=== PATIENT | male | born 1945 | race Caucasian/White ===

== ENCOUNTER 2017-02-28 07:17 | Day surgery (SDC) | payer OTHER, MEDICARE ==
--- NOTE | 2017-02-18 17:01 | PREOP HISTORY & PHYSICAL ---
HISTORY: 71 year old male here for evaluation of declining vision in both eyes for the past 1-2 years. He is having more trouble seeing the ball when playing softball (seeing the scoreboard) and seeing the golf ball. He is having to get closer to road signs in order to read them. He notes more trouble seeing the sports scores and scrolling tonya on the television (as well as the television guide). He is also having some difficulty seeing smaller print - even when wearing reading glasses (needing more light in order to read). He denies significant glare symptoms or seeing "starbursts or haloes " around lights at night. PAST OCULAR HISTORY: "Cataracts", Reading glasses OCULAR MEDICATIONS: None PAST MEDICAL HISTORY: Problem List/Past Medical (Dom Kim M.D.; 01/22/2017 9:25 AM) Aortic aneurysm (I71.9)04/2013 Ascending Aortic Aneurysm 3.5cm, Aortic Arch Aneurysm 4cm, Dr. Garcia History of kidney stones (Z87.442) ALLERGIES: No Known Drug Allergies FAMILY HISTORY: No Significant Family Ocular History SOCIAL HISTORY: Alcohol Use Drinks Socially. Tobacco Use Former smoker. Quit in 1974. 10 Pack-Years. Vehicle Driving Yes. CURRENT MEDICATIONS: Aspirin (81MG Tablet, 1 Oral daily) Active. Cialis (20MG Tablet, 1 (one) Tablet Oral daily prn prior to intercourse, Taken starting 02/15/2016) Active. Medications Reconciled PAST SURGICAL HISTORY: [employer] REVIEW OF SYSTEMS: General Not Present- Fever. Skin Not Present- New Lesions, Skin Cancer and Skin Problems. HEENT Present- Blurred Vision and Visual Disturbances (floaters). Not Present- Decreased Hearing, Eye Pain, Sinusitis and Sleep Apnea. Respiratory Not Present- Asthma, Chronic Cough, Emphysema and Shortness of Breath. Breast Not Present- Breast Cancer. Cardiovascular Not Present- Angina, Heart Problems, Heart Stent, Hyperlipidemia and Hypertension. Gastrointestinal Not Present- Heartburn and PUD. Male Genitourinary Not Present- BPH and Prostate cancer. Musculoskeletal Not Present- Joint Pain. Neurological Not Present- Decreased Memory, Headaches, Stroke and Vertigo. Psychiatric Not Present- Anxiety and Depression. Endocrine Not Present- Diabetes and Thyroid Problems. Hematology Not Present- Bleeding Problems and Blood Clots. Note: Reviewed by Dr. Kim. PHYSICAL EXAMINATION: 02/05/2017 4:19 PM Pulse: 57 (Regular) P.OX: 94% (Room air) BP: 104/70 (Sitting, Left Wrist, Small) Chest and Lung Exam Auscultation Breath sounds - Clear and Symmetric throughout. Cardiovascular Auscultation Rhythm - Regular. Heart Sounds - Normal heart sounds. Murmurs & Other Heart Sounds - Auscultation of the heart reveals - No Murmurs. OCULAR EXAMINATION: VISUAL ACUITY: without correction OD 20/40-1 OS 20/50-1 VISUAL ACUITY: with correction (Glasses) NEAR J1 at 14" WORKING Rx: ADD + 2.75 ([id number] readers) MANIFEST REFRACTION: OD -0.75 + 1.00 x 160 (20/40 BAT 20/60+1) Slightly better vision in trial frames OS -1.25 + 1.25 x 030 (20/40-2 BAT 20/60+2) Slightly better vision in trial frames ADD + 2.50 (J1+ at 14") Better near vision in trial frames than previous Rx CONFRONTATIONAL VISUAL OSWALD: Normal to counting fingers in four quadrants OU PUPILS: Round and equal OU with no afferent pupillary defect seen EXTERNAL: Normal OU EXTRA-OCULAR MUSCLES: Versions full OU - orthotropic at both distance and near SLIT LAMP EXAM: LIDS/LASHES: Normal OU CONJUNCTIVA: Quiet OU CORNEA: Clear OU AC: Deep and quiet OU IRIS: Normal OU PUPILS: Round OU - dilated to only about 4-5 mm OU (blue irides OU) LENS: 2+ nuclear sclerosis with 2-3+ cortical cataract changes OS > OD ANTERIOR VITREOUS: No anterior vitreous cells or pigment seen OU TONOMETRY: TIME: 2:45 PM OD: 14 mm Hg OS: 10 mm Hg DILATING gtt: Phenylephrine 2.5% + Tropicamide 1% FUNDUS: C/D: 0.5 OU DISCS: Sharp with clear disc margins OU. Large Delaney rings OU MACULA: Absent foveal reflex OU VESSELS: Normal OU PERIPHERY: Posterior vitreous detachment OU with no retinal breaks seen OU KERATOMETRY: OD 42.65 / 43.11 x 107 OS 43.08 / 43.31 x 130 AXIAL LENGTH: OD 24.71 +/- 0.004 OS 24.61 +/- 0.012 IMPRESSION: Cataract cortical, senile, bilateral (H25.013) Story: Visually significant cataracts OS > OD - discussed with patient today who is quite symptomatic due to cataracts and who would like to proceed with cataract surgery. Will plan on OS first. We discussed the refractive goals today and the patient would like to be corrected to a near-plano spherical equivalent postoperatively in both eyes (with no monovision or multifocal intra- ocular lenses). Posterior vitreous detachment of both eyes (H43.813) Posterior vitreous detachment OU PLAN: Cataract extraction with intra-ocular lens OS, February 28, 2017. Lid soaks and scrubs BID OU (pre-operative blepharitis protocol and antibiotic ointment instructions handout given to patient today). Erythromycin ophthalmic ointment q hs OU as blepharitis prophylaxis (an e-Rx with refills x 1 was sent to [facility] in [place] ([phone] ) today. BIOMETRY, OPHTHALMIC, BY PARTIAL COHERENCE INTERFEROMETRY ([id number]) Started Erythromycin 5MG/GM, Apply 1/8 inch Ointment to the eyelashes of both eyes at bedtime, 1 Tube, 02/05/2017, Ref. x1. Started Zymaxid 0.5%, 1 drop(s) four times daily to the operated eye, after surgery, 1 Bottle, 02/05/2017, Ref. x1. Started PrednisoLONE Acetate 1%, 1 drop(s) four times daily in the operated eye , after surgery, 10 Milliliter, 02/05/2017, Ref. x1. MTDD
[~2017-02-28 07:17] MED LIST: APRACLONIDINE 0.5% OPHTH 5 ML BTL OP ONE; BUPIVACAINE HCL/PF 0.75% 10 ML VIAL OP ONE; CIPROFLOXACIN 0.3% OPHTH 50 DROP/5 ML BTL OP SCH; CYCLOPENTOLATE HCL 1% OPHTH 2 ML BTL OP SCH; FLURBIPROFEN 0.03% OPHTH 2.5 ML BTL OP SCH; PHENYLEPHRINE 2.5% OPHTH 10 DROP/2 ML BTL OP SCH
[2017-02-28] MEDS ORDERED: BUPIVACAINE HCL/PF 0.75% 10 ML VIAL ONE (07:54)
[2017-02-28] MEDS ORDERED: PHENYLEPHRINE 2.5% OPHTH 10 DROP/2 ML BTL ONE (07:55)
[2017-02-28] MEDS ORDERED: CYCLOPENTOLATE HCL 1% OPHTH 2 ML BTL ONE (07:55)
[2017-02-28] MEDS ORDERED: FLURBIPROFEN 0.03% OPHTH 2.5 ML BTL ONE (07:55)
[2017-02-28] MEDS ORDERED: APRACLONIDINE 0.5% OPHTH 5 ML BTL ONE (07:55)
[2017-02-28] MEDS ORDERED: CIPROFLOXACIN 0.3% OPHTH 50 DROP/5 ML BTL ONE (07:55)
[2017-02-28 07:56] VITALS: TEMP 97.7
[2017-02-28] MEDS ORDERED: BACITRACIN OPHTH OINTMENT 3.5 GM TUBE ONE (08:41)
[2017-02-28] MEDS ORDERED: LIDOCAINE HCL/PF 1% 30 ML VIAL ONE (08:41)
[2017-02-28] MEDS ORDERED: CHONDROITIN/HYALURONIDATE OPHT 0.5 ML KIT ONE (08:41)
[2017-02-28] MEDS ORDERED: KETOROLAC 0.45% OPHTH 1 DROP/EACH DROPERETTE ONE (08:41)
[2017-02-28 09:47] VITALS: BP 134/78; PULSE 57; RESP 17; O2SAT 95
--- NOTE | 2017-02-28 14:16 | OPERATIVE REPORT ---
DATE OF SURGERY: 02/28/2017 SURGEON: Dom Kim MD ANESTHESIA: Topical with monitored anesthesia care. PREOPERATIVE DIAGNOSIS: Cataract, left eye. POSTOPERATIVE DIAGNOSIS: Cataract, left eye. OPERATION PERFORMED: Cataract extraction by phacoemulsification with posterior chamber intraocular lens, left eye. COMPLICATIONS: None. PROCEDURE: The patient was brought to the operating room where he was placed in the supine position. After the instillation of additional tetracaine drops in the left eye, the eye was prepped and draped in the usual sterile ophthalmic manner. A lid speculum was placed in the left eye, after which an inferior paracentesis was fashioned with 1-mm steel keratome, and 0.2 mL of 1% nonpreserved lidocaine was injected intracamerally followed by Viscoat. A temporal clear corneal incision of 3-mm width was fashioned with a steel keratome. A continuous curvilinear capsulorrhexis was fashioned with a bent-needle cystitome and Utrata forceps under Viscoat. This was kept small as the patient's pupil did not dilate well. Hydrodissection was carried out with balanced salt solution on an intraocular cannula. The nucleus was noted to rotate freely. Phacoemulsification proceeded in a two-handed fashion utilizing typical phacoemulsification times and medrano, as the nucleus was noted to be 2+ dense. Residual cortical material was then removed with the automated irrigation-aspiration handpiece. The anterior chamber and capsular bag were then reinflated with Provisc, after which an AcrySof model SA60AT foldable acrylic intraocular lens of 18.0 diopters power was placed into the capsular bag. The haptics were rotated with a Y hook and the intraocular lens was noted to center well. Residual viscoelastic was then removed with the automated irrigation-aspiration handpiece , after which the wound edges were hydrated with balanced salt solution. The intraocular pressure at the conclusion of the procedure was physiologic, and there was no evidence of wound leakage upon testing with a Weck Luci sponge. Acular drops and bacitracin ointment were placed in the left eye, and the patient was brought to the recovery area, having tolerated the procedure well. He was given full postoperative instructions. RON
== END 2017-02-28 09:50 | disposition home or self-care (01) ==
LOC: SDS 07:17
PROVIDERS: ATTEND Ophthalmology
DX: H25.12 Age-related nuclear cataract, left eye (principal); I71.9 Aortic aneurysm of unspecified site, without rupture; Z87.442 Personal history of urinary calculi
CPT/HCPCS: J0171; V2632

== ENCOUNTER 2017-03-14 06:40 | Day surgery (SDC) | payer OTHER, MEDICARE ==
--- NOTE | 2017-03-08 12:50 | PREOP HISTORY & PHYSICAL ---
HISTORY: 71 year old male post successful cataract surgery OS on 02/28/2017, now notes that the vision in his right eye is very "dull and blurry" when compared with the left eye. PAST OCULAR HISTORY: Cataract extraction with PC IOL OS 02/28/17 (Judy). Visually significant cataract OD. OCULAR MEDICATIONS: None PAST MEDICAL HISTORY: Aortic aneurysm (I71.9)04/2013 Ascending Aortic Aneurysm 3.5cm, Aortic Arch Aneurysm 4cm, Dr. Garcia History of kidney stones (Z87.442) ALLERGIES: No Known Drug Allergies FAMILY HISTORY: No Significant Family Ocular History SOCIAL HISTORY: Alcohol Use Drinks Socially. Tobacco Use Former smoker. Quit in 1974. 10 Pack-Years. Vehicle Driving Yes. CURRENT MEDICATIONS: Aspirin (81MG Tablet, 1 Oral daily) Active. Cialis (20MG Tablet, 1 (one) Tablet Oral daily prn prior to intercourse, Taken starting 02/15/2016) Active. Medications Reconciled PAST SURGICAL HISTORY: Cataract Surgery OS 02/28/17 [facility] PHYSICAL EXAMINATION: Vitals (Dom Kim M.D.; 02/05/2017 4:20 PM) 02/05/2017 4:19 PM Pulse: 57 (Regular) P.OX: 94% (Room air) BP: 104/70 (Sitting, Left Wrist, Small) Chest and Lung Exam Auscultation Breath sounds - Clear and Symmetric throughout. Cardiovascular Auscultation Rhythm - Regular. Heart Sounds - Normal heart sounds. Murmurs & Other Heart Sounds - Auscultation of the heart reveals - No Murmurs. OCULAR EXAMINATION: VISUAL ACUITY: without correction OD 20/40-1 MANIFEST REFRACTION: OD -0.75 + 1.00 x 160 (20/40 BAT 20/60+1) Slightly better vision in trial frames CONFRONTATIONAL VISUAL OSWALD: Normal to counting fingers in four quadrants OU PUPILS: Round and equal OU with no afferent pupillary defect seen EXTERNAL: Normal OU EXTRA-OCULAR MUSCLES: Versions full OU - orthotropic at both distance and near SLIT LAMP EXAM: LIDS/LASHES: Normal OU CONJUNCTIVA: Quiet OU CORNEA: Clear OU AC: Deep and quiet OU IRIS: Normal OU PUPILS: Round OU - dilated to only about 4-5 mm OU (blue irides OU) LENS: 2+ nuclear sclerosis with 2-3+ cortical cataract changes OD ANTERIOR VITREOUS: No anterior vitreous cells or pigment seen OU TONOMETRY: TIME: 2:45 PM OD: 14 mm Hg OS: 10 mm Hg DILATING gtt: Phenylephrine 2.5% + Tropicamide 1% FUNDUS: C/D: 0.5 OU DISCS: Sharp with clear disc margins OU. Large Delaney rings OU MACULA: Absent foveal reflex OU VESSELS: Normal OU PERIPHERY: Posterior vitreous detachment OU with no retinal breaks seen OU KERATOMETRY: OD 42.65 / 43.11 x 107 OS 43.08 / 43.31 x 130 AXIAL LENGTH: OD 24.71 +/- 0.004 OS 24.61 +/- 0.012 IMPRESSION: Cataract cortical, senile, Right Story: Visually significant cataract OD - We discussed the refractive goals and the patient would like to be corrected to a near-plano spherical equivalent postoperatively OD. Posterior vitreous detachment of both eyes (H43.813) PLAN: Cataract extraction with intra-ocular lens OD, March 14, 2017. Lid soaks and scrubs BID OU (pre-operative blepharitis protocol and antibiotic ointment instructions handout given to patient today). Erythromycin ophthalmic ointment q hs OU as blepharitis prophylaxis Started Erythromycin 5MG/GM, Apply 1/8 inch Ointment to the eyelashes of both eyes at bedtime, 1 Tube, 02/05/2017, Ref. x1. Started Zymaxid 0.5%, 1 drop(s) four times daily to the operated eye, after surgery, 1 Bottle, 02/05/2017, Ref. x1. Started PrednisoLONE Acetate 1%, 1 drop(s) four times daily in the operated eye , after surgery, 10 Milliliter, 02/05/2017, Ref. x1. MTDD
[2017-03-14 06:53] VITALS: TEMP 97.3
[2017-03-14] MEDS ORDERED: PHENYLEPHRINE 2.5% OPHTH 10 DROP/2 ML BTL ONE (06:59)
[2017-03-14] MEDS ORDERED: BUPIVACAINE HCL/PF 0.75% 10 ML VIAL ONE (06:59)
[2017-03-14] MEDS ORDERED: APRACLONIDINE 0.5% OPHTH 5 ML BTL ONE (06:59)
[2017-03-14] MEDS ORDERED: CIPROFLOXACIN 0.3% OPHTH 50 DROP/5 ML BTL ONE (06:59)
[2017-03-14] MEDS ORDERED: FLURBIPROFEN 0.03% OPHTH 2.5 ML BTL ONE (06:59)
[2017-03-14] MEDS ORDERED: CYCLOPENTOLATE HCL 1% OPHTH 2 ML BTL ONE (06:59)
[2017-03-14] MEDS ORDERED: BACITRACIN OPHTH OINTMENT 3.5 GM TUBE ONE (07:12)
[2017-03-14] MEDS ORDERED: CHONDROITIN/HYALURONIDATE OPHT 0.5 ML KIT ONE (07:13)
[2017-03-14] MEDS ORDERED: KETOROLAC 0.45% OPHTH 1 DROP/EACH DROPERETTE ONE (07:13)
[2017-03-14] MEDS ORDERED: LIDOCAINE HCL/PF 1% 30 ML VIAL ONE (07:13)
[2017-03-14 08:24] VITALS: O2SAT 96
[2017-03-14 08:35] VITALS: BP 134/88; PULSE 71; RESP 16
--- NOTE | 2017-03-14 11:03 | OPERATIVE REPORT ---
DATE OF SURGERY: 03/14/2017. SURGEON: Dom Kim MD ANESTHESIA: Topical with monitored anesthesia care. PREOPERATIVE DIAGNOSIS: Cataract, right eye. POSTOPERATIVE DIAGNOSIS: Cataract, right eye. OPERATION PERFORMED: Cataract extraction by phacoemulsification with posterior chamber intraocular lens, right eye. COMPLICATIONS: None. PROCEDURE: The patient was brought to the operating room where he was placed in the supine position. After the instillation of additional tetracaine drops in the right eye, the eye was prepped and draped in the usual sterile ophthalmic manner. A lid speculum was placed in the right eye, after which an inferior paracentesis was fashioned with 1-mm steel keratome, and 0.2 mL of 1% nonpreserved lidocaine was injected intracamerally followed by Viscoat. A temporal clear corneal incision of 3-mm width was fashioned with a steel keratome. A continuous curvilinear capsulorrhexis was fashioned with a bent- needle cystitome and Utrata forceps under Viscoat. This was necessarily kept small as the patient's pupil did not dilate well. Hydrodissection was carried out with balanced salt solution on an intraocular cannula. The nucleus was noted to rotate freely. Phacoemulsification proceeded in a two-handed fashion utilizing typical phacoemulsification times and medrano, as the nucleus was noted to be 2+ dense. Residual cortical material was then removed with the automated irrigation-aspiration handpiece. The anterior chamber and capsular bag were then reinflated with Provisc, after which an AcrySof model SA60AT foldable acrylic intraocular lens of 18.0 diopters power was placed into the capsular bag. The haptics were rotated with a Y hook and the intraocular lens was noted to center well. Residual viscoelastic was then removed with the automated irrigation-aspiration handpiece , after which the wound edges were hydrated with balanced salt solution. The intraocular pressure at the conclusion of the procedure was physiologic, and there was no evidence of wound leakage upon testing with a Weck Luci sponge. Acular drops and bacitracin ointment were placed in the right eye, and the patient was brought to the recovery area, having tolerated the procedure well. He was given full postoperative instructions. RON
== END 2017-03-14 08:40 | disposition home or self-care (01) ==
LOC: SDS 06:40
PROVIDERS: ATTEND Ophthalmology
DX: H25.011 Cortical age-related cataract, right eye (principal); Z96.1 Presence of intraocular lens; Z98.42 Cataract extraction status, left eye; H43.813 Vitreous degeneration, bilateral; I71.9 Aortic aneurysm of unspecified site, without rupture; Z87.442 Personal history of urinary calculi; Z79.82 Long term (current) use of aspirin
CPT/HCPCS: J0171; V2632